=== PATIENT | male | born 1995 | race Two or more races ===

== ENCOUNTER 2024-02-17 15:06 | Emergency (ER) | payer MEDICAID, OTHER ==
[~2024-02-17] VITALS: Ht 167.6 cm; Wt 95.5 kg
[2024-02-17 15:22] VITALS: BP 140/82; PULSE 98; RESP 16; O2SAT 98
[2024-02-17] MEDS ORDERED: SODIUM CHLORIDE 0.9% 1,000 ML IV ONE (15:45)
--- NOTE | 2024-02-17 16:08 | ED.PDOC ---
HPI (NEURO) HPI Comments 28 y.o non verbal male with a PMH of Seizures and Autism, presents to the ED via EMS for an evaluation of seizure like activity today. EMS reports patient was at an adult day care facility today, was on his way back home when staff witnessed a seizure inside the van. Father presents to the ED who states patient is on Keppra, last seizure was one month ago but have been controlled with Keppra which patient is slowly weening off and using CBD oil. Father reports patient lasts about 30 minutes- 1 hour in postictal state. At this time, father is signing patient AMA. Chief Complaint: Seizure Time Seen by MD: 15:09 Primary Care Provider: NAYELI Laura Notes: Nurses Notes, Cloth Drier Notes, Medications, Allergies Information Source: Relative (Father), Emergency Med Personnel Mode of Arrival: EMS Severity: Moderate Timing: Hours Duration: Since onset Seizure Location: Generalized Onset: At rest After: Normal Mentation History of: Seizure Disorder Modifying factors: Nothing Associated Signs and Symptoms: None Past Medical History PAST MEDICAL HISTORY: Seizures Past Medical History (Other): autism Surgical History: Denies all surgeries Family History Family History: Reviewed,noncontributory to illness Social History Smoker: Non-Smoker Alcohol: Denies ETOH Use Drugs: Denies Drug Use Lives In: Home Unable to Obtain due to: Other (patient is non verbal ) Physical Exam General Appearance: Moderate Distress HEENT: Normal ENT Inspection, Pharynx Normal, TMs Normal Neck: Full Range of Motion, Non-Tender, Normal, Normal Inspection Respiratory: Chest Non-Tender, Lungs Clear, No Accessory Muscle Use, No Respiratory Distress, Normal Breath Sounds Cardiovascular: No Edema, No JVD, No Murmur, No Gallop, Normal Peripheral Pulses, Regular Rate/Rhythm Breast Exam: Deferred Gastrointestinal: No Organomegaly, Non Tender, No Pulsatile Mass, Normal Bowel Sounds, Soft Genitalia: Deferred Pelvic: Deferred Rectal: Deferred Extremities: No calf tenderness, Normal capillary refill, Normal inspection, Normal range of motion, Non-tender, No pedal edema Musculoskeletal : Apperance: Normal Neurologic: Disoriented Cerebellar Function: NOT DONE Reflexes: NOT DONE Skin: Wounds (Mucous membrane) Peripheral Pulses: 3+ Radial (R), 3+ Radial (L) Lymphatic: No Adenopathy Was a procedure done? Was a procedure done?: No Differential Diagnosis (SZ) Seizure: Psychogenic Seizure, Syncope, Encephalopathy, Epilepsy-Break Through, Epilepsy-Status X-Ray, Labs, Meds, VS Vital Signs Date Time Temp Pulse Resp B/P (MAP) Pulse Ox O2 Delivery O2 Flow Rate FiO2 02/17/24 15:22 98.7 98 16 140/82 (101) 98 Patient is slightly disoriented. Has oral trauma. Vitals stable. History of seizure. Is taking his medication. Special needs. Being followed carefully with the family. Reviewed his history. Explained to the family. Continue cardiac monitoring. Time of 1ST Reevaluation: 16:04 Reevaluation 1ST: Unchanged Patient Education/Counseling: Other (patient is non verbal ) Family Education/Counseling: Diagnosis, Treatment, Prognosis Additional Information I reviewed the following notes from patient's past medical encounters: LAB and PHA The following tests were ordered, and results were reviewed by me: LAB Additional Information was gathered from interviewing the following independent historians:Paramedics and Father I discussed treatment and results with medical personnel and father Departure 1 Departure Time of Disposition: 17:19 Impression: Primary Impression: Seizure Disposition: ADMITTED INPATIENT Admit to: Med Surg Condition: Guarded Critical Care Note Critical Care Time?: No Stability Stability form required: No I personally scribed for MARGOT ALEXANDRE MD ([email or web address]) on 02/17/24 at 16:08. Electronically submitted by Kaleigh Ferrell ([facility]). MARGOT ALEXANDRE MD Feb 17, 2024 16:08
== END 2024-02-17 15:35 | disposition left against medical advice (07) ==
LOC: EDBD 15:06 → ER 15:06
DX: G40.909 Epilepsy, unspecified, not intractable, without status epilepticus (principal)